=== PATIENT | female | born 1975 | race Caucasian/White ===

== ENCOUNTER 2018-03-14 06:45 | Emergency (ER) | payer MEDICAID ==
[~2018-03-14] VITALS: Ht 152.4 cm; Wt 65.0 kg
[2018-03-14] MEDS ORDERED: SODIUM CHLORIDE FLUSH 10ML SYR IVF ONE (07:30)
[2018-03-14] MEDS ORDERED: OXYcodone/APAP 5/325MG TABLET ONE (07:51)
[2018-03-14] MEDS ORDERED: OXYcodone/APAP 5/325MG TABLET PO ONE (08:00)
[2018-03-14 08:15] LABS: BASOPHILS # (AUTO) 0.03 x10^3/uL (0-0.1); BASOPHILS % (AUTO) 0 % (0-1); EOSINOPHILS # (AUTO) 0.22 x10^3/uL (0-0.4); EOSINOPHILS % (AUTO) 2 % (1-7); LYMPHOCYTES # (AUTO) 1.53 x10^3/uL (1-3.4); LYMPHOCYTES % (AUTO) 17 % (22-44); MD NO; MEAN CORPUSCULAR HEMOGLOBIN 30.9 pg (27.0-34.8); MEAN CORPUSCULAR VOLUME 90.8 fL (80-100); MEAN PLATELET VOLUME 9.2 fL (7.4-10.4); MONOCYTES # (AUTO) 0.48 x10^3/uL (0.2-0.8); MONOCYTES % (AUTO) 5 % (2-9); NEUTROPHILS # (AUTO) 6.99 x10^3/uL (1.8-6.8); NEUTROPHILS % (AUTO) 76 % (42-75); PLATELET COUNT 222 x10^3/uL (130-400); RED BLOOD COUNT 3.68 x10^6/uL (3.82-5.3); RED CELL DISTRIBUTION WIDTH 12.9 % (9.6-15.2)
[2018-03-14 08:27] LABS: ALBUMIN 3.8 g/dL (3.4-5.0); ANION GAP 6 mmol/L (5-15); CALCIUM 8.5 mg/dL (8.5-10.1); CHLORIDE 106 mmol/L (98-107)
[2018-03-14 08:32] LABS: CREATININE 0.79 mg/dL (0.55-1.02)
[2018-03-14] MEDS ORDERED: OMNIPAQUE 350 MG/ML, 100ML BOTTLE ONE (09:07)
[2018-03-14 09:27] LABS: CULTURE INDICATED? NO; MICROSCOPIC NOT IND
[2018-03-14 09:43] LABS: HCG UR SG > 1.045 (1.003-1.030)
[2018-03-14 10:24] VITALS: BP 115/72
[2018-03-15] MEDS ORDERED: SULF-169 PO (05:15)
== END 2018-03-14 10:43 | disposition home or self-care (01) ==
LOC: ED 09:33
DX: S30.1XXA Contusion of abdominal wall, initial encounter (principal); L03.115 Cellulitis of right lower limb; F17.200 Nicotine dependence, unspecified, uncomplicated; Y08.89XA Assault by other specified means, initial encounter; Y92.89 Other specified places as the place of occurrence of the external cause; Y99.8 Other external cause status; Y93.89 Activity, other specified
CPT/HCPCS: 36415; 74177; 80048; 81003; 81025; 82040; 84703; 85025; 99285; Q9967

== ENCOUNTER 2020-07-03 05:13 | Emergency (ER) | payer MEDICAID ==
[~2020-07-03] VITALS: Ht 152.4 cm; Wt 72.3 kg
[~2020-07-03 05:13] MED LIST: SULF-169 PO
--- NOTE | 2020-07-03 05:22 | NUR ---
44 Y/O FEMALE BIB [facility] FOR AN ABSCESS TO THE RIGHT BREAST. PT STATES SHE WAS CLEANING OUT AN OLD HOUSE WHEN DEBRIS FELL ON HER. SHE HAD A SPIDER IN HER SHIRT. A FEW DAYS LATER SHE BEGAN TO HAVE REDNESS, PAIN AND SWELLING TO THE RIGHT BREAST. THIS HAS CONTINUED FOR APPROX 6 DAYS WITHOUT RELIEF. SHE HAS BEEN APPLYING WARM COMPRESSES TO THE AREA. SIGNIFICANT REDNESS AND SWELLING NOTED. EMS STARTED AN IV AND ADMINISTERED 100 MCG OF FENTANYL IV FOR PAIN. PT IS IN OBVIOUS PAIN UPON ARRIVAL TO ER. ALSO REPORTS HAVING FEVERS SINCE YESTERDAY. LAST DOSE OF MOTRIN AN HOUR AGO. ALL MONITORING EQUIPMENT APPLIED. VITALS STABLE. REPORT TO PRIMARY RNGUILLERMINA.
--- NOTE | 2020-07-03 05:24 | NUR ---
Large abscess to right breast for 6 days, increasing in pain, redness, swelling. Pt states she has been trying to "squeeze" it for several days but with no luck. tonight pain became worse states couldn't stand it. EMS admin 100 fentenyl IV, states pain now back at 10/10. Reports feeling generalized weakness, "feverish" and yesterday with n/v. On cont pulse ox, call light in reach, aidet provided. Will drew margins of abscess.
--- NOTE | 2020-07-03 05:36 | NUR ---
ERP at bedside.
[2020-07-03] MEDS ORDERED: HYDROmorphone 2 MG/ML, 1ML ONE (05:44)
[2020-07-03] MEDS ORDERED: ONDANSETRON 2MG/ML, 2ML ONE (05:45)
[2020-07-03] MEDS: HYDROmorphone 2 MG/ML, 1ML IVPush PRN ×2 (05:47→06:08)
--- NOTE | 2020-07-03 05:53 | NUR ---
PLACED ON 2l O2 S/P DILAUDID ADMIN FOR SAT DECREASE 85%. CON PULSE OX. ABSCESS ME Addendum: 07/03/20 at 0555 by [email or web address] ABSCESS MEASURES 3X4CM REDNESS 10X9CM
[2020-07-03] MEDS ORDERED: ONDANSETRON 2MG/ML, 2ML IVPush ONE (06:00)
--- NOTE | 2020-07-03 06:02 | NUR ---
Lab here drawing blood, pt still moaning in pain. VSS, will re-assess.
--- NOTE | 2020-07-03 06:10 | NUR ---
Clark mcgregor in [facility] - 07/03/20 at 0610 by ANJELICA m
--- NOTE | 2020-07-03 06:10 | NUR ---
MEDICATED WITH 2ND DOSE PAIN MEDS, REMAINS ON CONT PULSE OX AND O2 SUPPL. WILL CONTINUE TO MONITOR AND SET UP FOR I/D
[2020-07-03 06:13] VITALS: BP 134/86
[2020-07-03] MEDS ORDERED: LIDOCAINE-MPF 1%, 5ML ONE (06:15)
[2020-07-03 06:22] LABS: BASOPHILS % (AUTO) 1 % (0-1); EOSINOPHILS % (AUTO) 4 % (1-7); LYMPHOCYTES % (AUTO) 32 % (22-44); MEAN CORPUSCULAR HEMOGLOBIN 31.1 pg (27.0-34.8); MEAN CORPUSCULAR HGB CONC 33.7 g/dL (32.4-35.8); MEAN PLATELET VOLUME 8.7 fL (7.4-10.4); MONOCYTES % (AUTO) 10 % (2-9); NEUTROPHILS % (AUTO) 54 % (42-75); PLATELET COUNT 296 x10^3/uL (130-400); RED BLOOD COUNT 3.94 x10^6/uL (3.82-5.3); RED CELL DISTRIBUTION WIDTH 12.6 % (9.6-15.2)
[2020-07-03 06:24] LABS: ALBUMIN 3.4 g/dL (3.4-5.0); ANION GAP 4 mmol/L (5-15); CALCIUM 8.7 mg/dL (8.5-10.1); CHLORIDE 114 mmol/L (98-107); CREATININE 0.75 mg/dL (0.55-1.02)
[2020-07-03 06:28] LABS: MD NO
--- NOTE | 2020-07-03 06:28 | NUR ---
set up for i/d with suction, wound irrigation. pt appears much more comfortable after x2 doses of pain med. cont pulse ox on.
[2020-07-03] MEDS ORDERED: LIDOCAINE-MPF 1%, 5ML INFIL ONE (06:30)
--- NOTE | 2020-07-03 06:34 | NUR ---
Pt agreed to i/d by erp, chaperoned by this nurse.
--- NOTE | 2020-07-03 07:22 | NUR ---
Patient/Caregiver given discharge instructions and they have confirmed that they understand the instructions. Patient ambulatory with steady gait.
== END 2020-07-03 08:04 | disposition home or self-care (01) ==
LOC: ED 06:30
DX: L02.213 Cutaneous abscess of chest wall (principal); F17.210 Nicotine dependence, cigarettes, uncomplicated
CPT/HCPCS: 10060; 36415; 80048; 82040; 85025; 96374; 96375; 99284; J1170; J2405